=== PATIENT | male | born 1965 | race Caucasian/White ===

== ENCOUNTER → 2023-10-19 12:38 | Outpatient (REF) | payer OTHER, SELFPAY | LOC: PAVMRI 12:38 | PROVIDERS: ATTENDING PHYSICIAN Student in an Organized Health Care Education/Training Program; FAMILY PHYSICIAN Physician Assistant | DX: M47.816 Spondylosis without myelopathy or radiculopathy, lumbar region (principal); M54.50 Low back pain, unspecified | CPT/HCPCS: 72148 ==